=== PATIENT | female | born 1950 | race Asian ===

== ENCOUNTER 2018-01-22 17:56 | Emergency (ER) | payer MEDICARE, OTHER ==
[~2018-01-22] VITALS: Ht 167.6 cm; Wt 76.0 kg
[2018-01-22] MEDS ORDERED: TETANUS, DIPHTHERIA, PERTUSSIS VAC/PF 0.5ML (>7YR OLD) IM ONE (21:45)
[2018-01-22 21:55] VITALS: BP 110/78
== END 2018-01-22 22:15 | disposition home or self-care (01) ==
LOC: ER 17:56
DX: S01.111A Laceration without foreign body of right eyelid and periocular area, initial encounter (principal); S01.81XA Laceration without foreign body of other part of head, initial encounter; S60.222A Contusion of left hand, initial encounter; S60.221A Contusion of right hand, initial encounter; V58.4XXA Person boarding or alighting a pick-up truck or van injured in noncollision transport accident, initial encounter; Y93.89 Activity, other specified; Y92.89 Other specified places as the place of occurrence of the external cause
CPT/HCPCS: 12011; 73130; 81025; 90471; 90715; 99284